=== PATIENT | male | born 1945 | race Caucasian/White ===

== ENCOUNTER 2018-07-04 08:51 | Observation (INO) | payer OTHER, BC ==
[2018-07-04] MEDS ORDERED: diphenhydrAMINE 25 MG CAP PO ONE (09:14)
[2018-07-04] MEDS ORDERED: BACITRACIN IRRIGATION/NS 50,000 UNITS/1,000 ML BTL IRR ONE (09:14)
[2018-07-04] MEDS ORDERED: NS 1,000 ML IV ONE ×2 (09:14)
[2018-07-04] MEDS ORDERED: ceFAZolin 2 GM/DEXTROSE 100 ML IV ONE (09:14)
[2018-07-04] MEDS ORDERED: DIAZEPAM 5 MG TAB PO ONE (09:14)
[2018-07-04 10:12] LABS: PLATELET COUNT 234 10^3/uL (150-400)
[2018-07-04 10:22] LABS: INR 0.89 (0.83-1.16); PROTIME(PATIENT) 12.3 SEC (12.0-15.0)
--- NOTE | 2018-07-04 10:28 | PDGENHP ---
History & Physical Chief Complaint: presyncope Relevant Physical Exam: s1s2 rrr cta ao3 Cardiorespiratory Assessment: for ep study and likely pacemaker placement
[2018-07-04] MEDS ORDERED: BUPIVACAINE 0.75% 10 ML SDV ONE ×2 (10:47→12:01)
[2018-07-04] MEDS ORDERED: IOPAMIDOL (ISOVUE-300) 100 ML BTL ONE (10:47)
[2018-07-04] MEDS ORDERED: LIDOCAINE 1% 300 MG/30 ML SDV ONE ×2 (10:47→12:01)
--- NOTE | 2018-07-04 10:47 | PDANEPAE ---
ANE History of Present Illness EP study/PPM placement ANE Past Medical History - Cardiovascular History Hx Hypertension: Yes Hx Arrhythmias: Yes Hx Chest Pain: No Hx Coronary Artery / Peripheral Vascular Disease: No Hx CHF / Valvular Disease: No Hx Palpitations: Yes - Pulmonary History Hx COPD: No Hx Asthma/Reactive Airway Disease: No Hx Recent Upper Respiratory Infection: No Hx Oxygen in Use at Home: No Hx Sleep Apnea: No - Endocrine History Hx Diabetes: Yes ANE Review of Systems Review of systems is: negative Review of Systems: - Exercise capacity Exercise capacity: >=4 METS ANE Patient History - Allergies Allergies/Adverse Reactions: No Known Allergies Allergy (Verified 07/04/18 09:40) - Home Medications Home medications: home medication list seen and reviewed Home Medications: Aspirin [Aspirin 81mg (*)] 81 mg PO DAILY 07/04/18 [Last Taken Unknown] Valsartan [Diovan (*)] 160 mg PO DAILY 07/04/18 [Last Taken Unknown] metFORMIN HCL [Glucophage 500 mg (*)] 500 mg PO BIDMEAL 07/04/18 [Last Taken Unknown] - Anes Hx Anes Hx: no prior problems - Smoking Hx Smoking Status: Never smoked ANE Labs/Vital Signs - Labs Result Diagrams: 07/04/18 09:30 07/04/18 09:30 - Vital Signs Height: 170 cm Weight: 90.7 kg ANE Physical Exam - Airway Neck exam: FROM Mallampati Score: Class 1 Mouth exam: normal dental/mouth exam - Pulmonary Pulmonary: no respiratory distress - Cardiovascular Cardiovascular: regular rate and rhythym - ASA Status ASA Status: III ANE Anesthesia Plan Anesthesia Plan: GA w LMA
[2018-07-04] MEDS ORDERED: fentaNYL 100 MCG/2 ML INJ ONE ×2 (10:50→12:03)
[2018-07-04] MEDS ORDERED: LIDOCAINE 2% 5 ML SDV ONE (10:51)
[2018-07-04] MEDS ORDERED: PROPOFOL 200 MG/20 ML VIAL ONE (10:51)
[2018-07-04] MEDS ORDERED: oxyCODONE IR 5 MG TAB PO PRN (11:28)
[2018-07-04] MEDS ORDERED: HYDROCODONE/APAP 5/325 TAB PO PRN (11:28)
[2018-07-04] MEDS ORDERED: HYDROmorphONE/DILAUDID 2 MG/ML INJ IVP PRN (11:28)
[2018-07-04] MEDS ORDERED: fentaNYL 100 MCG/2 ML INJ IVP PRN (11:28)
[2018-07-04] MEDS ORDERED: METOCLOPRAMIDE 10 MG/2 ML VIAL IVP PRN (11:28)
[2018-07-04] MEDS ORDERED: ONDANSETRON 4 MG/2 ML VIAL IVP PRN (11:28)
[2018-07-04] MEDS ORDERED: ALBUTEROL 3 ML DEYVIAL IH PRN (11:28)
[2018-07-04] MEDS ORDERED: ACETAMINOPHEN 500 MG TAB PO PRN (11:28)
[2018-07-04] MEDS ORDERED: PROMETHAZINE HCL 25 MG/ML INJ IVP PRN (11:28)
[2018-07-04] MEDS ORDERED: NALOXONE HCL 0.4 MG/ML INJ IVP PRN (11:28)
--- NOTE | 2018-07-04 11:28 | POSTANESTH ---
Post Anesthetic Evaluation Cardiovascular Status: Normal, Stable Respiratory Status: Normal, Stable Level of Consciousness/Mental Status: Can Participate in Eval, Alert and Oriented Pain Control: Adequate, Prn Tx Ordered Nausea/Vomiting Control: Adequate, Prn Tx Ordered Complications Possibly Related to Anesthesia: None Noted
[2018-07-04] MEDS ORDERED: D5W IV ONE (11:30)
[2018-07-04] MEDS ORDERED: PROCAINAMIDE HCL IV ONE (11:30)
[2018-07-04] MEDS ORDERED: ISOPROTERENOL HCL/D5W 0.2 MG/50 ML BAG IV ONE (11:31)
--- NOTE | 2018-07-04 12:10 | ECHO ---
[email or web address] [address] [address] Main: [phone] Fax: Transthoracic Echocardiogram Name: BECKY ROGERS MR#: [id number] Study Date: 07/04/2018 Study Time: 10:07 AM Date of : 1945 Age: 72 year(s) Height: 170.2 cm (67 in.) Weight: 90.72 kg (200 lb.) BSA: 2.02 m2 Gender: Male Examination: Echo Indication: pre-pacemaker Image Quality: Adequate Contrast: Requested by: Mahamed Giraldo BP: 137 mmHg/80 mmHg Heart Rate: Rhythm: Indication: pre-pacemaker Procedure Staff Electronic Specialist: Penelope Avalos [facility] Reading Physician: Mahamed Giraldo MD Requesting Provider: Conclusions: Borderline concentric LV hypertrophy. EF is 68 %. Mild mitral valve regurgitation is present. Mild calcification of the non-coronary cusp. Mild aortic valve regurgitation is present. Mild tricuspid regurgitation is present. There is mild prolapse of the anterior leaflet of the tricuspid valve. Measurements: Chambers Valvular Assessment AV/MV Valvular Assessment TV/PV Normal Normal Normal Name Value Range Name Value Range Name Value Range Ao Namrata (MM): 3.4 cm (2.2 cm-3.7 AV meanP mmHg ( - ) TR Vmax: 2.23 mm/s ( - ) cm) RADHA (VTI): 3.5 cm ( - ) TR PGmax: 20 mmHg ( - ) IVSd (2D): 1.0 cm (0.6 cm-1.1 AR (PHT): 748 ms ( - ) syst. PAP: 25 mmHg ( - ) cm) MV E Vmax: 0.75 m/s ( - ) PV Vmax: 1.13 m/s (0.6 m/s-0.9 LVDd (2D): 4.5 cm (4.2 cm-5.9 MV A Vmax: 1.03 m/s ( - ) m/s) cm) MV E/A: 0.73 ( - ) PV PGmax: 5 mmHg ( - ) LVDs (2D): 2.7 cm (2.1 cm-4 cm) LVPWd (2D): 1.0 cm (0.6 cm-1 cm) LVOTd 2.2 cm 2.2 cm mm LVEF (BP): 68 % (>=55 %) RVDd(2D): 3.2 cm (1.9 cm-3.8 cmmm) Continued Measurements: Chambers Valvular Assessment AV/MV Valvular Assessment TV/PV Patient: BECKY ROGERS Study Date: 07/04/2018 Page 1 of 2 10:07 AM Name Value Name Value Name Value LADs: 3.4 cm MV DecTime: 183 m/s CVP (est.): 5 mmHg LADs Lon.4 cm MV E' Septal: 0.04 m/s LA Area: 18.7 cm2 MV E/E' Septal: 16.70 LA Volume: 54 ml MV E/E' Lateral: 8.10 LA Volume Index: 26.7 ml/m2 AR Vmax: 3.37 cm/s TAPSE: 1.9 cm RA Area: 16.3 cm2 Additional Vessels Name Value Ao Ascendin.2 cm Findings: Left Ventricle: Normal size left ventricle. Borderline concentric LV hypertrophy. Normal global systolic LV function. EF is 68 %. No regional wall motion abnormality. Normal diastolic LV function. Right Ventricle: Normal size right ventricle. Normal RV function. Left Atrium: The left atrium is normal in size. Right Atrium: The right atrium is borderline dilated. Mitral Valve: The mitral valve is normal in appearance. Mild mitral valve regurgitation is present. No mitral stenosis is present. Aortic Valve: The aortic valve is tri-leaflet. Mild calcification of the non-coronary cusp. Mild aortic valve regurgitation is present. No aortic valve stenosis is present. Tricuspid Valve: The tricuspid valve appears normal. Mild tricuspid regurgitation is present. Right ventricular systolic pressure measures 25mmHg. There is mild prolapse of the anterior leaflet of the tricuspid valve. The pulmonary artery pressure is normal. Pulmonic Valve: Pulmonary valve not well visualized. Trivial pulmonic valve regurgitation. Aorta: Normal size aortic root measuring 3.4 cm. Normal size ascending aorta measuring 3.2 cm. IVC: Normal size and course of the IVC. Pericardium: No pericardial effusion. There is pericardial fat. (No Signature Object) Patient: BECKY ROGERS Study Date: 07/04/2018 Page 2 of 2 10:07 AM [id number]
--- NOTE | 2018-07-04 12:52 | EPPROC ---
Electrophysiology Procedure Note: DIAGNOSTIC ELECTROPHYSIOLOGIC STUDY Procedures performed: 1. Fluoroscopy 2. EP evaluation with RA/RV/LA pace/record, with arrhythmia induction 3. EP evaluation with RA/RV pace record, insert/reposition catheter, with arrhythmia induction 4. Programmed stimulation + pacing after IV drug INDICATION: Trifascicular block Near syncope PROCEDURE: Catheters & Anesthesia: The patient arrived in the Electrophysiology Laboratory in the fasting state. The right clavicular region, right groin, & left groin area were prepped & draped in the usual sterile manner. Dr. Hailey Herndon administered anesthesia. Appropriate non-invasive blood pressure, pulse oximetry & end-tidal CO2 monitoring was established. All catheters were placed percutaneously using the modified Seldinger technique , and advanced into position under fluoroscopic guidance. One #7 Wallisian deflectable octapolar electrode catheter was advanced to the His-bundle position via the R femoral vein (2mm spacing). This was moved to CS and RA for atrial pacing. Programmed stimulation was performed from the right atrium, right ventricle and coronary sinus (left atrium). Programmed ventricular stimulation using 2 sites and standard protocol +/- isoproterenol 2 mcg/min did not induce any sustained VT. The catheters were removed. Vascular access sheaths were removed in the EP lab after placing subcutaneous pursestring suture. The patient was left on the table for pacemaker implantation. 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 Trifascicular block with infrahisian conduction disease. 2. No apparent complications.
--- NOTE | 2018-07-04 12:52 | EPPROC ---
Electrophysiology Procedure Note: PROCEDURE PERFORMED: 1. Implantation of an A/V Pacemaker 2. Subclavian vein angiography 3. Fluoroscopy INDICATION: Presyncope Trifascicular block, HV 115 ms at EP study No ventricular arrhythmias induced at EP study PROCEDURE NOTE: Patient was on the table post EP study. The left infraclavicular area was prepped and draped in the usual sterile fashion. Lidocaine plus bupivacaine was used for local anesthesia. Left subclavian venography was performed by injection of iodinated contrast into the left antecubital vein. This was done to assure patency of the vein and also to assess for any anatomical aberrations. Using a combination of blunt and sharp dissection and electrocautery, the dissection was carried down to the prepectoral fascia. A pocket was made in this anatomical plane. All bleeding was controlled with electrocautery. The pocket was packed with gauze soaked in antibiotic solution. Fluoroscopy was utilized during the entire procedure for venous access and placement of the leads. Using a direct stick technique the left extrathoracic axillary vein was accessed with 2 sticks using the modified Seldinger technique. Placement of the guidewires into the venous system was confirmed by low-pressure blood return and also by visualizing the guidewires advancing into the inferior vena cava. A purse string suture was applied around the guidewires. Two #7 Ug[place] sheaths were advanced under fluoroscopic guidance over the guidewire. An active fixation ventricular lead was advanced into the right ventricular mid septum and screwed in place. An active fixation atrial lead was advanced into the right atrial appendage and screwed in place. The peel away sheaths were removed. Pacing thresholds, sensing parameters and lead impedances were measured. There was no diaphragmatic stimulation at maximum output. The leads were sutured to the prepectoral fascia with 3 nonabsorbable sutures each. The pocket was again inspected for any bleeding. The leads were attached to the pacemaker securely. The pacemaker was inserted into the pocket and secured in place with a nonabsorbable suture. Fluoroscopy was performed in KEBEDE and CHINESE planes to verify right-sided placement of the leads. Also fluoroscopy of the pacemaker pocket was performed. The pacemaker pocket was closed in 3 layers with absorbable monocryl sutures and devaughn. Appropriate dressing was applied. The patient left the cardiac catheterization laboratory in stable condition. Serial Numbers: 1. Device: SJ Assurity MRI [id number] 2. Atrial Lead: SJM Tendril [id number] 3. Ventricular Lead: SJM Tendril 8TC [id number] Stimulation Thresholds & Impedance Measurements: 1. Atrial Lead 1.4 mV P, 1.1 V 0.5 ms, 2.3 mA, 453 ohm 2. Ventricular Lead 7.2 mV R, 0.5 V 0.5 ms, 1 mA, 495 ohm Parker Pacing Parameters 1. Pacing mode: DDDR 2. Lower rate: 60ppm 3. Upper tracking rate: 130 ppm 4. Upper sensor rate: 130 ppm
[2018-07-05 06:01] LABS: PLATELET COUNT 201 10^3/uL (150-400)
[2018-07-05 08:12] VITALS: BP 132/78
[2018-07-05] MEDS ORDERED: ASPIRIN 81 MG CHEWABLE TAB PO SCH (09:00)
[2018-07-05] MEDS ORDERED: VALSARTAN 160 MG TAB PO SCH (09:00)
--- NOTE | 2018-07-06 03:38 | GDS ---
[f rep st] DISCHARGE SUMMARY ADMISSION DIAGNOSES: 1. Trifascicular block. 2. Near syncope. DISCHARGE DIAGNOSES: Trifascicular block with infra-Hisian conduction disease, status post implant o f a dual-chamber permanent pacemaker. SUPERVISING TREE DRILLER: Mahamed Giraldo M.D. HOSPITAL COURSE: The patient presented 07/04/2018, for an electrophysiology study in the setting of near syncope with trifascicular block noted on 12-lead ECG. EP study demonstrated trifascicular bloc k with infra-Hisian conduction disease. He subsequently underwent implant of a dual-chamber permanen t pacemaker with Dr. Giraldo, without any intra procedure complications. He has done very well in the po st procedure period and has been up ambulating around his room this morning without issue. Chest x-r ay this morning demonstrates appropriate lead placement and device interrogation this morning demonst rates stable threshold and impedance. He is appropriate and stable for discharge home today. PHYSICAL EXAMINATION: GENERAL: Alert and oriented x4. No apparent distress. VITAL SIGNS: Blood p ressure 135/76, heart rate 70, respiratory rate 18, temp 36.8, SpO2 97% on room air. RESPIRATORY: L ungs are clear to auscultation without adventitious breath sounds. CARDIAC: Regular rate and rhythm . Normal S1, S2. No S3, S4. ABDOMEN: Normoactive bowel sounds times all 4 quadrants. Soft, no ma sses, no tenderness. SKIN: [place], warm, dry without cyanosis, clubbing, or peripheral edema. Left p ectoral incision with clean and dry dressing in place, no evidence of hematoma or infection to this s ite. EXTREMITIES: Right groin pursestring suture removed intact without evidence of hematoma, redne ss, oozing, swelling or warmth. Pulses are 2+ bilaterally, no edema. LABORATORY STUDIES: Drawn today, CBC and BMP are stable compared to pre procedure. PROCEDURES: Electrophysiology study and implant of a dual-chamber permanent pacemaker as mentioned a maryana. Electrocardiogram this morning demonstrates AV paced rhythm without new ST-T wave or AL interv al abnormalities. Chest x-ray this morning demonstrates appropriate anterior lead placement. DISCHARGE DISPOSITION: Patient will be discharged home in stable condition. He is under activity re strictions as below. DISCHARGE MEDICATIONS: Please see discharge medication reconciliation sheet for full details. Kei segal note that there have been no medication changes during this hospitalization. DISCHARGE INSTRUCTIONS: Post pacemaker implant and post EP study instructions reviewed with patient in detail. We discussed activity restrictions including lifting no more than 10 pounds and avoidance of submerged bathing for 10 days. He will avoid lifting his left arm above the level of the shoulde r for 6 weeks. He will get up and walk around every 45 minutes for 45 days. We also reviewed bleedi ng precautions, medication compliance, monitoring for signs and symptoms of infection and monitoring for sustained arrhythmia or recurrent presyncope. Patient will schedule a nuclear imaging stress test for further evaluation of his symptoms at the aimee e of discharge. He verbalizes understanding of all discharge instructions without questions or melissa rns. He will follow up with our device clinic for a wound check and removal of his devaughn in 1 week . He will have a nuclear imaging stress test and he will follow up with Dr. Giraldo in 3-4 weeks. Time spent on discharge greater than 30 minutes. /[id number]/MODL
--- NOTE | 2018-07-06 16:37 | CPEKG ---
Test Reason : OPEN Blood Pressure : / mmHG Vent. Rate : 052 BPM Atrial Rate : 056 BPM P-R Int : 425 ms QRS Dur : 142 ms QT Int : 475 ms P-R-T Axes : -56 -46 029 degrees QTc Int : 442 ms Sinus or ectopic atrial rhythm Prolonged [place] interval RBBB and LAFB Left ventricular hypertrophy Lateral infarct, age indeterminate Confirmed by Shawn Perez ([id number]) on 07/06/2018 4:36:58 PM Referred By: Mahamed Giraldo Confirmed By:Shawn Perez
--- NOTE | 2018-07-06 16:40 | CPEKG ---
Test Reason : OPEN Blood Pressure : / mmHG Vent. Rate : 063 BPM Atrial Rate : 062 BPM P-R Int : 193 ms QRS Dur : 147 ms QT Int : 475 ms P-R-T Axes : -74 -49 066 degrees QTc Int : 487 ms Atrial-paced complexes IVCD, consider atypical RBBB LVH with IVCD, LAD and secondary repol abnrm Borderline prolonged QT interval Atrial pacing is new in comparison to prior ECG Confirmed by Shawn Perez ([id number]) on 07/06/2018 4:39:53 PM Referred By: Mahamed Giraldo Confirmed By:Shawn Perez
--- NOTE | 2018-07-06 16:42 | CPEKG ---
Test Reason : OPEN Blood Pressure : / mmHG Vent. Rate : 063 BPM Atrial Rate : 063 BPM P-R Int : 174 ms QRS Dur : 187 ms QT Int : 495 ms P-R-T Axes : -54 -65 038 degrees QTc Int : 507 ms Atrial-ventricular dual-paced rhythm AV pacing has replaced atrial paced rhythm on the prior ECG Confirmed by Shawn Perez ([id number]) on 07/06/2018 4:42:14 PM Referred By: Mahamed Giraldo Confirmed By:Shawn Perez
== END 2018-07-05 10:51 | disposition home or self-care (01) ==
LOC: FCATH 08:51 → F2W 12:53
PROVIDERS: ADMIT Internal Medicine Cardiovascular Disease; ATTEND Internal Medicine Cardiovascular Disease
PROC: 0JH606Z Insertion of Pacemaker, Dual Chamber into Chest Subcutaneous Tissue and Fascia, Open Approach (ICD-10-PCS; principal; 2018-07-04)
PROC: 02HK3JZ Insertion of Pacemaker Lead into Right Ventricle, Percutaneous Approach (ICD-10-PCS; principal; 2018-07-04)
PROC: 02H63JZ Insertion of Pacemaker Lead into Right Atrium, Percutaneous Approach (ICD-10-PCS; principal; 2018-07-04)
PROC: 4A023FZ Measurement of Cardiac Rhythm, Percutaneous Approach (ICD-10-PCS; 2018-07-04)
PROC: 5A1213Z Performance of Cardiac Pacing, Intermittent (ICD-10-PCS; 2018-07-04)
PROC: 02H63MZ Insertion of Cardiac Lead into Right Atrium, Percutaneous Approach (ICD-10-PCS; 2018-07-04)
DX: I45.3 Trifascicular block (principal); R55 Syncope and collapse; I10 Essential (primary) hypertension; E78.5 Hyperlipidemia, unspecified; E11.9 Type 2 diabetes mellitus without complications; Z79.84 Long term (current) use of oral hypoglycemic drugs
CPT/HCPCS: 33208; 71045; 71046; 93005; 93306; 93620; 93621; 93623; C1731; C1785; C1898; J0690; J2704; J3010; Q9967; J2690

== ENCOUNTER → 2018-07-11 | Outpatient (CLI) | payer OTHER, BC | LOC: BHFA 14:00 | PROVIDERS: ATTEND Internal Medicine Interventional Cardiology | DX: R55 Syncope and collapse (principal) | CPT/HCPCS: 78452; 93017; A9500; J2785 ==